=== PATIENT | female | born 1965 | race Caucasian/White ===

== ENCOUNTER 2019-06-25 15:12 | Emergency (ER) | payer OTHER ==
[~2019-06-25] VITALS: Ht 167.6 cm; Wt 70.3 kg
[~2019-06-25 15:12] MED LIST: AMLODIPINE BESYL5 MG; ATENOLOL50 MG
== END 2019-06-25 20:56 | disposition home or self-care (01) ==
LOC: ER 15:12
DX: R10.31 Right lower quadrant pain (principal)